=== PATIENT | female | born 1970 | race Two or more races ===

== ENCOUNTER 2025-06-11 23:59 | Emergency (ER) | payer MEDICAID, SELFPAY ==
[2025-06-12 00:02] VITALS: BMI 29.6
[2025-06-12 00:15] VITALS: BP 143/91; PULSE 105; RESP 18; TEMP 38.3; O2SAT 96
[2025-06-12] MEDS: HYDROcodone/APAP 5/325 TABLET 1 TAB PO (00:39)
[2025-06-12 00:40] VITALS: TEMP 38.3
[2025-06-12] MEDS: ACETAMINOPHEN 500 MG TABLET PO (00:40)
--- NOTE | 2025-06-12 00:42 | PD.EDURI ---
Upper Respiratory Inf. RME/HPI General Chief Complaint: Dental/Oral/Throat Stated Complaint: SORE THROAT BODY PAIN Time Seen by Provider: 06/12/25 00:31 Arrival date/time: 06/11/25 23:59 54F with history of DM presents to ED with 2 days of sore throat and body aches. Daughter has similar symptoms. Limitations: no limitations Related Data Previous Rx's ?Medication ?Instructions ?Recorded prednisone 20 mg tablet 40 mg (2 x 20 mg) PO QDAY #10 tabs 02/06/18 ondansetron 4 mg disintegrating 4 mg PO Q8H PRN nausea and 03/08/23 tablet vomiting #15 tabs Allergies Allergy/AdvReac Type Severity Reaction Status Date / Time ibuprofen Allergy Severe Rash Verified 06/12/25 00:05 Review of Systems Review of Systems Systems Reviewed: All systems reviewed, normal except as documented Constitutional Constitutional: Reports as per HPI and Reports body ache(s) ENT Ears, Nose, Mouth, and Throat: Reports as per HPI and Reports sore throat Past Medical History Past Medical History CARDIAC: Negative Congestive Heart Failure RESPIRATORY: Negative Chronic Obstructive Pulmonary Disease (COPD) GENITOURINARY: Negative Renal Disease ENDOCRINE: Positive Diabetes Mellitus Type 2; Negative Diabetes Mellitus Type 1 Social History SMOKING STATUS: Never smoker ED Exam General Limitations: Present no limitations General appearance: Present alert and in no apparent distress Head Head exam: Present atraumatic ENT ENT exam: Present normal exam, normal oropharynx and mucous membranes moist Neck Neck exam: Present normal inspection, full ROM and trachea midline Chest Chest inspection: Present normal inspection and symmetric chest wall rise Respiratory Respiratory exam: Present normal lung sounds bilaterally Neurological Exam Neurological exam: Present alert and oriented X3 Psychiatric Psychiatric exam: Present normal affect and normal mood Skin Skin exam: Present warm, dry, intact and normal color Course Quality Measures none Orders Category Date Time Status Acetaminophen Tab [Tylenol ES Tab] Med 06/12/25 00:32 Discontinued 500 mg PO X1 ONE HYDROcodone*/APAP 5/325 [[place] 5/325] Med 06/12/25 00:32 Discontinued 1 tab PO X1 ONE Vital Signs Vital signs: Vital Signs Temperature 100.9 F H 06/12/25 00:15 Pulse Rate 105 H 06/12/25 00:15 Respiratory Rate 18 06/12/25 00:15 Blood Pressure 143/91 H 06/12/25 00:15 Pulse Oximetry (%) 96 06/12/25 00:15 Oxygen Delivery Method Room Air 06/12/25 00:15 O2 at 96% on RA and WNLs Upper Respiratory Infection MDM Narrative MDM Narrative:: 54F with history of DM presents to ED with 2 days of sore throat and body aches. Daughter has similar symptoms. Physical exam reveals clear oropharynx and lungs. Normal WOB. Patient is mildly febrile, but does not appear toxic. Meds and pediatric genetic counselor given. Patient data External records reviewed:: [facility] previous records Clinical information provided by:: patient Social determinants that could affect healthcare access:: none Patient has the following chronic illnesses:: DM How is presenting disease/condition affected by chronic disease/condition?: exacerbated by Evaluation data The following diagnostics were reviewed and interpreted by me:: other (specify) (none) Lab and/or radiology exams considered but not ordered:: not ordered Interpretation Summary: n/a Medications / Prescriptions Medications or Prescriptions considered but not ordered:: ordered Medication administrations:: Medication Administration History Discontinued Medications Acetaminophen (Acetaminophen 500 Mg Tablet) 500 mg PO X1 ONE Stop: 06/12/25 00:33 Last Admin: 06/12/25 00:40 Dose: 500 mg Documented By: RAYMUNDO Hydrocodone Bitart/Acetaminophen (Hydrocodone/[place] 5/325 Tablet) 1 tab PO X1 ONE Stop: 06/12/25 00:33 Last Admin: 06/12/25 00:39 Dose: 1 tab Documented By: RAYMUNDO above Consultations Consultation(s) initiated? (list below): No Diagnosis Upper Respiratory Differential Diagnosis: upper respiratory infection, croup, otitis media, sinusitis, viral infection, bronchitis, influenza and pharyngitis Most likely diagnosis given after review of the tests above:: URI Admission Indicated Admission indicated?: not indicated Admission Request Was there a request for admission?: No Disposition Plan Disposition Plan: Discharge Discharge Attestation Discharge Attestation: The patient and all family members were given an opportunity to ask questions and understood the discharge instructions. Discharge instructions specifically effects, indications for sooner follow up or return to the emergency department, and the expected course of current diagnosis. Patient condition: Stable Discharge Plan Plan Patient Disposition: HOME (Self Care) Discharge Disposition comment: Stable Prescriptions/Referrals Prescriptions/Med Rec: No Action prednisone 20 mg tablet 40 mg PO QDAY Qty: 10 0RF ondansetron 4 mg tablet,disintegrating 4 mg PO Q8H PRN (Reason: nausea and vomiting) Qty: 15 0RF Problem List Clinical Impression: URI (upper respiratory infection) Patient/Caregiver Discharge Instructions Education Materials: ED URI, Viral, No Abx (Adult) Additional Instructions: Por favor, consulte con roger m?dico de cabecera en las pr?ximas 24 a 48 horas y regrese de inmediato si los s?ntomas empeoran. Benadryl es ?til para la tos, la congesti?n y para conciliar el matthew?o. Seg?n roger peso, puede jose 1000 mg de Tylenol cada 6 a 8 horas. Realice lavados nasales frecuentes. Mant?ngase hidratado. Reintroduzca los alimentos gradualmente seg?n los tolere. Please follow-up with PCP within 24-48 hours and return immediately if symptoms worsen. Benadryl is good for cough, congestion, and sleep. Based on your weight, you can have 1000 mg of Tylenol 6-8 hours. Lots of nasal suctioning. Keep hydrated. Advance diet as tolerated. Print Language: Urdu Stand Alone Forms: Patient Portal Info Letter PA/INSTRUCTOR OF SOCIOLOGY Supervising Physician PA/JOSE Supervising Physician: Dr. Alvarez
== END 2025-06-12 00:42 | disposition home or self-care (01) ==
LOC: SERX 06-12 01:04
PROVIDERS: Emergency Provider Emergency Medicine; PCP Family Medicine
DX: J06.9 Acute upper respiratory infection, unspecified (principal)
CPT/HCPCS: 99281; A9270